=== PATIENT | female | born 1995 | race African-American/Black ===

== ENCOUNTER 2019-03-12 18:41 | Emergency (ER) | payer SELFPAY ==
[~2019-03-12] VITALS: Ht 167.6 cm; Wt 68.0 kg
[2019-03-12] MEDS ORDERED: CLARITIN5 MG ORAL (18:49)
[2019-03-12] MEDS ORDERED: BENADRYL25 MG ORAL (18:49)
[2019-03-12 18:52] VITALS: BP 122/78
--- NOTE | 2019-03-12 18:52 | NUR ---
ED Nurse Note: Patient walked into ED accompanied by mom c/o chest pain 02/27 located in the sternum, patient states that her pain comes and goes, but laying down does aggravate the pain, patient is alert and oriented x4, ambulatory with a steady gait, VSS
--- NOTE | 2019-03-12 19:07 | Emergency Room Report ---
History of Present Illness General Chief Complaint: Chest Pain Source: Patient Present Illness HPI 23-year-old female presents to the emergency department complaining of increased frequency of palpitations times one month. Patient states technically she has been having intermittent palpitations for several years but never to this extent. Patient reports episodes last about 10-20 seconds and resolve on their own she states that she has episodes during rest as well as exertion she denies chest pain she reports feeling short of breath as if she cannot catch a full breath due to tightness in the chest region. She denies numbness or tingling in the extremities. Sweats or significant changes in weight. She does report mother has a history of heart murmur. Denies hx of acid reflux. She denies illicit drug use she reports she has been under increased stress this past month that she has been studying and just took her MCAT. Denies dizziness, syncope, LOC, or hx of anemia. pt. reports on occasion feeling near syncopal. Allergies: Uncoded Allergies: NUT (Allergy, Unknown, 03/12/19) STEROIDS (Allergy, Unknown, 03/12/19) Patient History Past Medical History: see triage record Past Surgical History: none Pertinent Family History: none Last Menstrual Period: 03/03/19 Reviewed Nursing Documentation: PMH: Agreed; PSxH: Agreed Nursing Documentation-PMH Past Medical History: No Stated History Review of Systems All Other Systems: negative except mentioned in HPI Physical Exam Vital Signs Date Time Temp Pulse Resp B/P (MAP) Pulse Ox O2 Delivery O2 Flow Rate FiO2 03/12/19 18:46 98.8 94 19 122/78 99 Room Air Sp02 EP Interpretation: reviewed, normal General Appearance: no apparent distress, alert, GCS 15, non-toxic Head: normocephalic, atraumatic Eyes: bilateral eye normal inspection, bilateral eye PERRL ENT: hearing grossly normal, normal voice Neck: full range of motion Respiratory: chest non-tender, lungs clear, normal breath sounds, speaking full sentences Cardiovascular #1: regular rate, rhythm Musculoskeletal: back normal, gait/station normal, normal range of motion, non- tender Neurologic: alert, oriented x3, responsive, motor strength/tone normal, sensory intact, speech normal, grossly normal Psychiatric: judgement/insight normal Skin: normal color, no rash, warm/dry, well hydrated Lymphatic: no adenopathy Medical Decision Making PA Attestation Dr. Marina is my supervising Physician whom patient management has been discussed with. Diagnostic Impression: Primary Impression: Intermittent palpitations ER Course 23-year-old female presents to the emergency department complaining of increased frequency of palpitations times one month. Patient states technically she has been having intermittent palpitations for several years but never to this extent. Patient reports episodes last about 10-20 seconds and resolve on their own she states that she has episodes during rest as well as exertion she denies chest pain she reports feeling short of breath as if she cannot catch a full breath due to tightness in the chest region. She denies numbness or tingling in the extremities. Sweats or significant changes in weight. She does report mother has a history of heart murmur. Denies hx of acid reflux. She denies illicit drug use she reports she has been under increased stress this past month that she has been studying and just took her MCAT. Denies dizziness, syncope, LOC, or hx of anemia. pt. reports on occasion feeling near syncopal. Ddx considered but are not limited to [place], arrhythmia, hypokalemia, anxiety reaction. Vital signs: are WNL, pt. is afebrile H&PE are most consistent with possible anxiety reaction, will r/o cardiac pathology. ORDERS: - EK bpm NSR - BMP: WNL -CBC: WNL -TSH: WNL -Free T3: WNL -Free T4: WNL -UDS: Negative -HCG: Negative ED INTERVENTIONS: none required at this time. pt. NAD. PT EDUCATION: -I do not identify an emergent condition at this time. With current presentation , pt. is stable for close outpatient follow up and conservative treatment. D/ w pt. to return promptly to ED with worsening or new symptoms.- Pt. verbalizes' understanding and agreement with proposed treatment plan.proposed treatment plan. DISCHARGE: At this time pt. is stable for d/c to home. Will provide printed patient care instructions, and any necessary prescriptions. Care plan and follow up instructions have been discussed with the patient prior to discharge. Labs Test 03/12/19 19:10 White Blood Count 5.0 K/UL (4.8-10.8) Red Blood Count 4.72 M/UL (4.20-5.40) Hemoglobin 13.3 G/DL (12.0-16.0) Hematocrit 39.1 % (37.0-47.0) Mean Corpuscular Volume 83 FL (80-99) Mean Corpuscular Hemoglobin 28.2 PG (27.0-31.0) Mean Corpuscular Hemoglobin Concent 34.0 G/DL (32.0-36.0) Red Cell Distribution Width 10.8 % (11.6-14.8) Platelet Count 234 K/UL (150-450) Mean Platelet Volume 6.4 FL (6.5-10.1) Neutrophils (%) (Auto) 35.6 % (45.0-75.0) Lymphocytes (%) (Auto) 50.1 % (20.0-45.0) Monocytes (%) (Auto) 8.5 % (1.0-10.0) Eosinophils (%) (Auto) 3.9 % (0.0-3.0) Basophils (%) (Auto) 2.0 % (0.0-2.0) Urine HCG, Qualitative Negative (NEGATIVE) Sodium Level 140 MMOL/L (136-145) Potassium Level 3.6 MMOL/L (3.5-5.1) Chloride Level 103 MMOL/L (98-107) Carbon Dioxide Level 27 MMOL/L (21-32) Anion Gap 10 mmol/L (5-15) Blood Urea Nitrogen 13 mg/dL (7-18) Creatinine 0.8 MG/DL (0.55-1.30) Estimat Glomerular Filtration Rate > 60 mL/min (>60) Glucose Level 92 MG/DL (74-106) Calcium Level 9.5 MG/DL (8.5-10.1) Total Bilirubin 0.2 MG/DL (0.2-1.0) Aspartate Amino Transf (AST/SGOT) 12 U/L (15-37) Alanine Aminotransferase (ALT/SGPT) 21 U/L (12-78) Alkaline Phosphatase 37 U/L (46-116) Total Protein 8.0 G/DL (6.4-8.2) Albumin 4.1 G/DL (3.4-5.0) Globulin 3.9 g/dL Albumin/Globulin Ratio 1.1 (1.0-2.7) Thyroid Stimulating Hormone (TSH) 1.552 uiU/mL (0.358-3.740) Free Thyroxine 0.90 NG/DL (0.76-1.46) Free Triiodothyronine 2.3 pg/mL (2.3-4.2) Urine Opiates Screen Negative (NEGATIVE) Urine Barbiturates Screen Negative (NEGATIVE) Phencyclidine (PCP) Screen Negative (NEGATIVE) Urine Amphetamines Screen Negative (NEGATIVE) Urine Benzodiazepines Screen Negative (NEGATIVE) Urine Cocaine Screen Negative (NEGATIVE) Urine Marijuana (THC) Screen Negative (NEGATIVE) EKG Diagnostic Results EP Interpretation: Dr. Marina Rate: normal - 71 Rhythm: NSR ST Segments: other ASA given to the pt in ED: No PA Scribe Text This Interpretation was scribed by OKSANA Baez. Last Vital Signs Date Time Temp Pulse Resp B/P (MAP) Pulse Ox O2 Delivery O2 Flow Rate FiO2 03/12/19 18:46 98.8 94 19 122/78 99 Room Air Disposition: HOME, SELF-CARE Condition: Stable Scripts Alprazolam* (XANAX*) 0.5 Mg Tablet 0.5 MG ORAL THREE TIMES A DAY for anxiety, #9 TAB 0 Refills Prov: Tania Baez 03/12/19 Patient Instructions: Palpitations, [id number] Additional Instructions: Take medications as directed. Follow up with a Primary Care Provider in 3-5 days, even if your symptoms have resolved. --Please review list of primary care clinics, if you do not already have a primary care provider Return sooner to ED if new symptoms occur, or current symptoms become worse. Do not drink alcohol, drive, or operate heavy machinery while taking Xanax as this may cause drowsiness. - Please note that this Emergency Department Report was dictated using [employer] mover technology software, occasionally this can lead to erroneous entry secondary to interpretation by the dictation equipment. Tania Baez Mar 12, 2019 19:07
[2019-03-12 19:26] LABS: EOSINOPHILS % (AUTO) 3.9 % (0.0-3.0); HEMATOCRIT 39.1 % (37.0-47.0); HEMOGLOBIN 13.3 G/DL (12.0-16.0); LYMPHOCYTES % (AUTO) 50.1 % (20.0-45.0); MEAN CORPUSCULAR VOLUME 83 FL (80-99); MONOCYTES % (AUTO) 8.5 % (1.0-10.0); NEUTROPHILS % (AUTO) 35.6 % (45.0-75.0); PLATELET COUNT 234 K/UL (150-450); RED BLOOD COUNT 4.72 M/UL (4.20-5.40); RED CELL DISTRIBUTION WIDTH 10.8 % (11.6-14.8)
--- NOTE | 2019-03-12 19:26 | NUR ---
HAND-OFF: Report given to DWAINE Bojra.
--- NOTE | 2019-03-12 19:27 | NUR ---
ED Nurse Note: Received report from Nolvia/RN. Pt is A/O X 4. VSS, will continue to monitor.
[2019-03-12 19:41] LABS: ANION GAP 10 mmol/L (5-15); BLOOD UREA NITROGEN 13 mg/dL (7-18); CALCIUM 9.5 MG/DL (8.5-10.1); CARBON DIOXIDE 27 MMOL/L (21-32); CHLORIDE 103 MMOL/L (98-107); CREATININE 0.8 MG/DL (0.55-1.30); POTASSIUM 3.6 MMOL/L (3.5-5.1); SODIUM 140 MMOL/L (136-145)
[2019-03-12 19:56] LABS: ALANINE AMINOTRANSFERASE 21 U/L (12-78); ALBUMIN 4.1 G/DL (3.4-5.0); ALBUMIN/GLOBULIN RATIO 1.1 (1.0-2.7); ALKALINE PHOSPHATASE 37 U/L (46-116); ASPARTATE AMINO TRANSFERASE 12 U/L (15-37); BILIRUBIN,TOTAL 0.2 MG/DL (0.2-1.0)
[2019-03-12] MEDS ORDERED: XANAX0.5 MG ORAL (20:20)
[2019-03-12 20:30] VITALS: BP 121/74
--- NOTE | 2019-03-12 20:30 | NUR ---
ER DISCHARGE NOTE: Patient is cleared to be discharged per Walker. Pt is aox4 on room air with stable vital signs. Pt was given dc and prescription instructions and was able to verbalize understanding. Pt's IV and ID band removed. pt is able to ambulate with steady gait and took all belongings. Accompanied by her family.
--- NOTE | 2019-03-15 15:33 | Cardiology Report ---
APPROVED REPORT EKG Measurement Heart [id number] FL 140P23 [id number] Normal sinus rhythm Normal ECG
== END 2019-03-12 20:30 | disposition home or self-care (01) ==
LOC: EMR 19:22
DX: R00.2 Palpitations (principal); Z91.018 Allergy to other foods; Z88.8 Allergy status to other drugs, medicaments and biological substances
CPT/HCPCS: 36415; 80053; 80307; 81025; 84439; 84443; 84481; 85025; 93005; 99283